=== PATIENT | female | born 1945 | race Two or more races ===

== ENCOUNTER 2017-10-01 09:45 | Outpatient (CLI) | payer OTHER | END 2017-10-01 12:41 | disposition home or self-care (01) | LOC: MAMO-SONO 09:45 | DX: Z12.31 Encounter for screening mammogram for malignant neoplasm of breast (principal); Z87.898 Personal history of other specified conditions; Z12.39 Encounter for other screening for malignant neoplasm of breast ==

== ENCOUNTER 2017-10-13 12:22 | Outpatient (CLI) | payer OTHER | END 2017-10-13 12:24 | disposition home or self-care (01) | LOC: NUCLEAR 12:22 | DX: M81.0 Age-related osteoporosis without current pathological fracture (principal); Z13.820 Encounter for screening for osteoporosis ==

== ENCOUNTER 2017-12-08 11:42 | Outpatient (CLI) | payer OTHER | END 2017-12-08 17:00 | disposition home or self-care (01) | LOC: RAD 11:42 | DX: M25.511 Pain in right shoulder (principal) ==

== ENCOUNTER 2020-03-22 10:11 | Outpatient (CLI) | payer OTHER | END 2020-03-22 10:26 | disposition home or self-care (01) | LOC: MAMO-SONO 10:11 | PROVIDERS: ATTEND General Practice | DX: Z12.31 Encounter for screening mammogram for malignant neoplasm of breast (principal) ==

== ENCOUNTER 2020-03-31 13:42 | Outpatient (CLI) | payer OTHER | END 2020-03-31 13:55 | disposition home or self-care (01) | LOC: NUCLEAR 13:42 | PROVIDERS: ATTEND General Practice | DX: M81.0 Age-related osteoporosis without current pathological fracture (principal); Z13.820 Encounter for screening for osteoporosis ==

== ENCOUNTER 2021-03-27 09:44 | Outpatient (CLI) | payer OTHER | END 2021-03-27 09:45 | disposition home or self-care (01) | LOC: MAMO-SONO 09:44 | PROVIDERS: ATTEND General Practice | DX: Z12.31 Encounter for screening mammogram for malignant neoplasm of breast (principal); N64.89 Other specified disorders of breast ==

== ENCOUNTER 2021-08-01 07:20 | Outpatient (CLI) | payer OTHER | END 2021-08-01 07:21 | disposition home or self-care (01) | LOC: SONOGRAMA 07:20 | PROVIDERS: ATTEND General Practice | DX: K59.09 Other constipation (principal); R10.84 Generalized abdominal pain ==

== ENCOUNTER 2021-08-07 10:59 | Outpatient (CLI) | payer OTHER | END 2021-08-07 11:10 | disposition home or self-care (01) | LOC: LAB 10:59 | PROVIDERS: ATTEND General Practice | DX: K86.2 Cyst of pancreas (principal) ==

== ENCOUNTER 2021-08-09 08:18 | Outpatient (CLI) | payer OTHER | END 2021-08-09 08:28 | disposition home or self-care (01) | LOC: TOM 08:18 | PROVIDERS: ATTEND General Practice | DX: K86.2 Cyst of pancreas (principal) | CPT/HCPCS: 74160; Q9965 ==

== ENCOUNTER 2021-08-31 08:29 | Outpatient (CLI) | payer OTHER | END 2021-08-31 08:43 | disposition home or self-care (01) | LOC: MRI 08:29 | PROVIDERS: ATTEND General Practice | DX: R93.5 Abnormal findings on diagnostic imaging of other abdominal regions, including retroperitoneum (principal) | CPT/HCPCS: 74183; Q9965; 74182 ==

== ENCOUNTER 2022-08-22 11:38 | Outpatient (CLI) | payer OTHER | END 2022-08-22 12:05 | disposition home or self-care (01) | LOC: MAMO-SONO 11:38 | PROVIDERS: ATTEND General Practice | DX: Z12.31 Encounter for screening mammogram for malignant neoplasm of breast (principal) ==

== ENCOUNTER 2022-08-22 12:42 | Outpatient (CLI) | payer OTHER | END 2022-08-22 12:47 | disposition home or self-care (01) | LOC: NUCLEAR 12:42 | PROVIDERS: ATTEND General Practice | DX: M81.0 Age-related osteoporosis without current pathological fracture (principal) ==

== ENCOUNTER 2023-01-10 12:38 | Outpatient (CLI) | payer OTHER | END 2023-01-10 12:42 | disposition home or self-care (01) | LOC: LAB 12:38 | PROVIDERS: ATTEND Radiology Diagnostic Radiology | DX: R42 Dizziness and giddiness (principal) ==

== ENCOUNTER 2023-01-13 09:19 | Outpatient (CLI) | payer OTHER | END 2023-01-13 09:27 | disposition home or self-care (01) | LOC: MRI 09:19 | DX: R42 Dizziness and giddiness (principal) | CPT/HCPCS: 70553; Q9965 ==

== ENCOUNTER 2024-08-31 12:11 | Outpatient (CLI) | payer OTHER | END 2024-08-31 12:15 | disposition home or self-care (01) | LOC: RAD 12:11 | PROVIDERS: ATTEND General Practice | DX: M06.4 Inflammatory polyarthropathy (principal) ==